=== PATIENT | female | born 1985 | race African-American/Black ===

== ENCOUNTER 2019-11-11 06:34 | Day surgery (SDC) | payer BC ==
[2019-11-05 14:43] LABS: Basophils % 1.8 % (0-1.3); Hematocrit 35.3 % (36.0-45.0); Lymphocytes % 22.1 % (15.3-44.8); RBC Red Blood Cell Count 4.47 M/uL (3.86-4.86)
--- OUTSIDE RECORDS SUMMARY | 2019-11-11 06:38 | XMS REPORT ---
:1985 [facility] Address [address] [place] [address] Dr. Yip [address] [place] [id number] Care Team Providers Name Role Phone Unavailable Unavailable Unavailable Problems This patient has no known problems. Allergies, Adverse Reactions, Alerts This patient has no known allergies or adverse reactions. Medications This patient has no known medications.
--- OUTSIDE RECORDS SUMMARY | 2019-11-11 06:38 | XMS REPORT | Summary of Care ---
:1985 Author Organization [facility] Address [address] [place] [address] Care Team Providers Name Role Phone Michele Narayan MD Primary Care Provider Encounter Details Date Type Department Care Team Description 09/10/2019 Orders Only [facility] Doctor Unassigned, No [address] [facility] [place] [address] [address] [phone] Allergies Not on Filedocumented as of this encounter (statuses as of 09/10/2019) Medications Not on filedocumented as of this encounter (statuses as of 09/10/2019) Active Problems Not on filedocumented as of this encounter (statuses as of 09/10/2019) Social History Tobacco Use Types Packs/Day Years Used Date Never Assessed Sex Assigned at Date Recorded Not on file Job Start Date Occupation Industry Not on file Not on file Not on file Travel History Travel Start Travel End No recent travel history available. documented as of this encounter Last Filed Vital Signs Not on filedocumented in this encounter Plan of Treatment Date Type Specialty Care Team Description 09/10/2019 Office Visit Endocrinology Diabetes & MendozaIsabel MD Metabolism [address] [place], [place] [id number] Health Maintenance Due Date Last Done Comments VARICELLA VACCINES (1 of 2 - 1988 2-dose childhood series) DTaP,Tdap,and Td Vaccines (1 - 1998 Tdap) PAP SMEAR 2008 INFLUENZA VACCINE (#1) 2019 PNEUMOCOCCAL 0-64 YEARS COMBINED Aged Out No longer eligible based on SERIES patient's age to complete this topic documented as of this encounter Procedures Procedure Name Priority Date/Time Associated Diagnosis Comments ASSIGNMENT OF BENEFITS Routine 09/10/2019 2:53 PM BULLDOZER/LOADER/COMPACTOR/SCRAPER documented in this encounter Results Not on filedocumented in this encounter Insurance Payer Benefit Plan Subscriber ID Effective Dates Phone Address Type / Group [facility] [id number] 2017-Alethea [phone] [address] PPO/POS [place] - OUT OF t [id number] [place] [address] documented as of this encounter
--- OUTSIDE RECORDS SUMMARY | 2019-11-11 06:38 | XMS REPORT | Summary of Care ---
:1985 Author Organization [facility] Address [address] [place] [address] Care Team Providers Name Role Phone Michele Narayan MD Primary Care Provider Reason for Visit Reason Comments Establish Care Thyroid Problem Encounter Details Date Type Department Care Team Description 09/10/2019 Office Visit [facility] Isabel Mendoza MD Hypothyroidism, unspecified type (Primary Dx); Endocrinology- [address] [facility] Hair loss [facility] Professional Office [address] [phone] [address] [place] [address] Allergies No Known Allergiesdocumented as of this encounter (statuses as of 09/10/2019) Medications Medication Sig Dispensed Refills Start Date End Date Status FERROCITE 324 mg (106 mg iron) Tab 0 06/18/2019 Active spironolactone 100 mg tablet 0 09/01/2019 Active documented as of this encounter (statuses as of 09/10/2019) Active Problems Not on filedocumented as of this encounter (statuses as of 09/10/2019) Social History Tobacco Use Types Packs/Day Years Used Date Never Smoker Smokeless Tobacco: Never Used Sex Assigned at Date Recorded Not on file Job Start Date Occupation Industry Not on file Not on file Not on file Travel History Travel Start Travel End No recent travel history available. documented as of this encounter Last Filed Vital Signs Vital Sign Reading Time Taken Comments Blood Pressure 130/90 09/10/2019 3:23 PM [employer]EWELRY SAL[employer] Pulse 82 09/10/2019 3:23 PM [employer]EW[employer] Temperature - - Respiratory Rate 16 09/10/2019 3:23 PM [employer] Oxygen Saturation - - Inhaled Oxygen Concentration - - Weight 71.1 kg (156 lb 12.8 oz) 09/10/2019 3:23 PM [employer] Height 160 cm (5' 3") 09/10/2019 3:23 PM [employer] Body Mass Index 27.78 09/10/2019 3:23 PM [employer] documented in this encounter Patient Instructions Patient InstructionsIsabel Mendoza MD - 09/10/2019 3:30 PM CSTStop iron and spirolactone when your next period start. Obtain all your blood work at 8am on the dayafter your period completes [employer] documented in this encounter Progress Notes Isabel Mendoza MD - 09/10/2019 3:30 PM CST Cc referral for abnormal thyroid tests HPI Patient is a 34 year old Black or female here as above. Patient reports worsening hair loss/thinner in past few months . Seen by fabrication operator Dr Lopez on 08/27/19. Work up reviewed mildly low free T3 at 2.2 , associated normal free T4 at 1.1 and TSH and 1.09 Patient complains today of:cold intolerance and fatigue associated with above hair loss Patient reports menses has been regular since teenage. LMP started 5 days ago. Denies FH of thyroid disease, infertility or hirsutism Patient was found to have iron deficiency and started on iron pill one month ago by PCP HISTORY No past medical history on file. No past surgical history on file. No family history on file. Social History Socioeconomic History Marital status: Single Spouse name: Not on file Number of children: Not on file Years of education: Not on file Highest education level: Not on file Occupational History Not on file Social Needs Financial resource strain: Not on file Food insecurity: Worry: Not on file Inability: Not on file Transportation needs: Medical: Not on file Non-medical: Not on file Tobacco Use Smoking status: Not on file Substance and Sexual Activity Alcohol use: Not on file Drug use: Not on file Sexual activity: Not on file Lifestyle Physical activity: Days per week: Not on file Minutes per session: Not on file Stress: Not on file Relationships Social connections: Talks on phone: Not on file Gets together: Not on file Attends catholic service: Not on file Active member of club or organization: Not on file Attends meetings of clubs or organizations: Not on file Relationship status: Not on file Intimate partner violence: Fear of current or ex partner: Not on file Emotionally abused: Not on file Physically abused: Not on file Forced sexual activity: Not on file Other Topics Concern Not on file Social History Narrative Not on file REVIEW OF SYSTEMS Constitutional: denies weight change, + fatigue and hair loss Eyes: denies blurry vision, denies diplopia and denies pain. Neck: denies pain, denies swollen glands Cardiovascular: denies chest pain , denies irregular pulse and denies palpitations. Respiratory: denies dyspnea on exertion and denies shortness of breath. Gastrointestinal: denies abdominal pain, denies constipation and denies diarrhea. Genitourinary: denies burning and denies dysuria. Musculoskeletal: denies back pain, denies muscle pain and denies weakness. Skin: denies dry skin Neuro: denies numbness , denies tingling and denies tremor. Psych: negative. Endocrine: denies goiter, + intolerance to cold, denies intolerance to heat, denies polydipsia, denies polyphagia and denies polyuria. PHYSICAL EXAM BP 130/90 (BP Location: Left arm, Patient Position: Sitting, BP CUFF SIZE: Adult Large) | Pulse 82| Resp 16 | Ht 5' 3" (1.6 m) | Wt 156 lb 12.8 oz ( 71.1 kg) | BMI 27.78 kg/m General: alert, oriented times three, no apparent distress, appearing age appropriate. Eyes: anicteric sclera, pupils are equally round and reactive to light and extraocular movements normal. Neck: neck supple, no adenopathy, no goiter Thyroid: normal size and soft in consistency to palpation, no palpable thyroid nodule, no bruits. Lungs: good diaphragmatic excursion, lungs clear to auscultation bilaterally. Heart: regular rate and rhythm, no murmurs, gallops or rubs. Abdomen: abdomen soft, non-tender, normal active bowel sounds Extremities/Musculoskeletal: no cyanosis, no edema Neuro: unremarkable without focal findings, no tremor . Skin; no hirsutism. Current Outpatient Medications Medication Sig Dispense Refill FERROCITE 324 mg (106 mg iron) Tab spironolactone 100 mg tablet No current facility-administered medications for this visit. 08/2019 TSH=1.05, free T4=1.1, free t3=2.2 SAMARIA negative CMP WNL H/H=11.2/36.2 ASSESSMENT/PLAN 1. Hypothyroidism, unspecified type Reports questionable hypothyroid symptoms with borderline low T3. However, T4 and TSH was WNL Given patient was recently started on iron, which may cause false low reading on thyroid tests Also reviewed pathophysiology of autoimmune thyroid disease Plan Will screen for durga's recheck TFts after holding iron pill - THYROID STIMULATING HORMONE; Future - T4 FREE; Future - FREE T3 - THYROID PEROXIDASE (TPO) AB; Future Patient Instructions Stop iron and spirolactone when your next period start. Obtain all your blood work at 8am on the dayafter your period completes 2. Hair loss Patient had regular menses and no sign for hirsutism in exam Hyperandrogenism is unlikely but will screen, given patient states no other hormonal work up in past - DEHYDROEPIANDROSTERONE SULFATE; Future - CORTISOL AM; Future - TESTOSTERONE, FEMALE/CHILDREN; Future Further plan pending labs documented in this encounter Plan of Treatment Name Type Priority Associated Diagnoses Order Schedule THYROID STIMULATING HORMONE LAB Routine Hypothyroidism, Expected: unspecified type 09/10/2019, Expires: 09/10/2020 T4 FREE LAB Routine Hypothyroidism, Expected: unspecified type 09/10/2019, Expires: 09/10/2020 FREE T3 LAB Routine Hypothyroidism, Ordered: unspecified type 09/10/2019 DEHYDROEPIANDROSTERONE SULFATE LAB Routine Hair loss Expected: 09/10/2019, Expires: 09/10/2020 CORTISOL AM LAB Routine Hair loss Expected: 09/10/2019, Expires: 09/10/2020 TESTOSTERONE, FEMALE/CHILDREN LAB Routine Hair loss Expected: 09/10/2019, Expires: 09/10/2020 THYROID PEROXIDASE (TPO) AB LAB Routine Hypothyroidism, Expected: unspecified type 09/10/2019, Expires: 09/10/2020 Health Maintenance Due Date Last Done Comments VARICELLA VACCINES (1 of 2 - 1988 2-dose childhood series) DTaP,Tdap,and Td Vaccines (1 - 1998 Tdap) PAP SMEAR 2008 INFLUENZA VACCINE (#1) 2019 PNEUMOCOCCAL 0-64 YEARS COMBINED Aged Out No longer eligible based on SERIES patient's age to complete this topic documented as of this encounter Results Not on filedocumented in this encounter Visit Diagnoses Diagnosis Hypothyroidism, unspecified type - Primary Hair loss Alopecia, unspecified documented in this encounter Insurance Payer Benefit Plan Subscriber ID Effective Dates Phone Address Type / Group [facility] [id number] 2017-Alethea [phone] [address] PPO/POS [place] - OUT OF 7 [id number] [place] [address] (Home) [place] [address] documented as of this encounter
--- OUTSIDE RECORDS SUMMARY | 2019-11-11 06:38 | XMS REPORT | Summary of Care ---
:1985 Author Organization [facility] Address [address] [place] [address] Care Team Providers Name Role Phone Michele Narayan MD Primary Care Provider Reason for Visit Reason Comments Establish Care Thyroid Problem Encounter Details Date Type Department Care Team Description 09/10/[address] [facility] Isabel Mendoza MD Hypothyroidism, unspecified type (Primary Dx); Endocrinology- [address] [facility] Hair loss [facility] Professional Office [address] [phone] [address] [place] [address] Allergies No Known Allergiesdocumented as [...] Comments Blood Pressure 130/90 09/10/2019 3:23 PM RESEARCH AND EVALUATION MANAGER Pulse 82 09/10/2019 3:23 PM RESEARCH AND EVALUATION MANAGER Temperature - - Respiratory Rate 16 09/10/2019 3:23 PM RESEARCH AND EVALUATION MANAGER Oxygen Saturation - - Inhaled Oxygen Concentration - - Weight 71.1 kg (156 lb 12.8 oz) 09/10/2019 3:23 PM RESEARCH AND EVALUATION MANAGER Height 160 cm (5' 3") 09/10/2019 3:23 PM RESEARCH AND EVALUATION MANAGER Body Mass Index 27.78 09/10/2019 3:23 PM RESEARCH AND EVALUATION MANAGER documented in this encounter Patient Instructions Patient InstructionsIsabel Mendoza MD - 09/10/2019 3:30 PM CSTStop iron and spirolactone when your next period start. Obtain all your blood work at 8am on the dayafter your period completes ARCH AND EVALUATION MANAGER documented in this encounter Progress Notes Isabel Mendoza MD - 09/10/2019 3:30 PM CST Cc referral for abnormal thyroid tests HPI Patient is a 34 year old Black or female here as above. Patient reports worsening hair loss/thinner in past few months . Seen by analytical engineer Dr Lopez on 08/27/19. Work up reviewed [...] file Gets together: Not on file Attends christianity service: Not on file Active member of [...] Effective Dates Phone Address Type / Group [facility] [id number] 2017-Alethea [phone] [address] PPO/POS [place] - OUT OF 7 [id number] [place] [address] (Home) [place] [address] documented as of this encounter
[2019-11-11] MEDS ORDERED: Ringers Lactate 1,000 ML IV ONE (07:00)
[2019-11-11] MEDS ORDERED: LIDOCAINE 1% W/EPI 1:100,000 MDV 20 ML VIAL ONE (07:15)
[2019-11-11 07:18] VITALS: O2SAT 100
[2019-11-11] MEDS ORDERED: LIDOCAINE 2% MPF 5 ML VIAL ONE (07:28)
[2019-11-11] MEDS ORDERED: FENTANYL CITR 100 MCG/2 ML ONE ×2 (07:28→08:52)
[2019-11-11] MEDS ORDERED: dexAMETHasone 10 MG/ML VIAL ONE (07:28)
[2019-11-11] MEDS ORDERED: MIDAZOLAM HCL 2 MG/2 ML INJ ONE (07:28)
[2019-11-11] MEDS ORDERED: propofoL 200 MG/20 ML VIAL IV ONE (07:28)
[2019-11-11] MEDS: HYDROMORPHONE HCL 1 MG/ML INJ ONE ×4 (09:25→09:44)
[2019-11-11] MEDS ORDERED: ONDANSETRON 4 MG/2 ML VIAL ONE (09:40)
[2019-11-11] MEDS: MEPERIDINE HCL 25 MG/0.5 ML ONE ×2 (09:43→09:48)
[2019-11-11] MEDS ORDERED: PROMETHAZINE INJ 25 MG/ML AMP ONE (09:57)
--- NOTE | 2019-11-11 10:09 | OP ---
Date of Procedure: 11/11/2019 Surgeon: Kezia Merchant MD Preoperative Diagnoses: Menorrhagia, fibroids, intracavitary type 1 leiomyoma. Postoperative Diagnoses: Menorrhagia, fibroids, intracavitary type 1 leiomyoma. Procedure Performed: Operative hysteroscopy, myomectomy, and D and C. Anesthesia: General with LMA. Fluid Deficit: 885 mL normal saline. Estimated Blood Loss: 50. Specimens: Myoma and endometrial curettings. Compications: No complications. Drains: No drains. Condition: Stable. Indications: The patient is a 34-year-old with heavy bleeding with enlarged uterus. Ultrasound show ing fibroids, type 1 leiomyoma inside the cavity confirmed removal after treatment of bleeding. The patient was consented and brought to the OR. Description Of Procedure: After patient was consented in the preop, she was taken back to OR, placed in a supine fashion on the operating table. After general anesthesia was given, placed in a dorsal lithotomy position using Nikko stirrups. The vulva, vagina, and perineum were prepped and draped in a sterile fashion. Speculum was placed to expose the cervix. Anterior lip grasped with 2 Allis clam ps. A slimline diagnostic hysteroscope was introduced directly into the uterine cavity. Myoma was v isualized at the fundus. The rest of the endometrial cavity was unremarkable. The slimline scope wa s exchanged with an operative hysteroscope. Then, using the smaller MyoSure LITE, I started to remov e the myoma. The blade on this and the channel was too small, so had to open the larger channel myom ectomy device. Once this was reintroduced in the uterine cavity, cavity was rinsed out. The pressur e at 100 mmHg. Then, dissection was performed taking the base down as well as the entire fibroid. E ndometrial sampling was performed as well. All the specimens were handed off for permanent pathology . The bleeding was minimal at the base of the myoma after the pressure was let down. The scope was removed. Instrument, needle, and sponge counts were done and were correct at the end of the case. T he patient tolerated the procedure well. She was recovered from anesthesia in the OR and taken to [facility] in stable condition. She has an appointment to follow up with me in 1 week and she has been given instructions to call with heavy bleeding. She will have sodium level checked in an hour postop and after verifying this, she will be discharged home. DINESH Voice ID: [id number] Report ID: [id number]
[2019-11-11 10:55] VITALS: TEMP 97.3
[2019-11-11] MEDS ORDERED: HYDROCODONE/APAP 5/325 MG TAB ONE (11:03)
[2019-11-11 12:38] VITALS: BP 123/80
== END 2019-11-11 11:40 | disposition home or self-care (01) ==
LOC: OR 06:34
PROVIDERS: ATTEND Obstetrics & Gynecology
PROC: 0UB98ZZ Excision of Uterus, Via Natural or Artificial Opening Endoscopic (ICD-10-PCS; principal; 2019-11-11 07:30)
DX: D25.9 Leiomyoma of uterus, unspecified (principal); N94.6 Dysmenorrhea, unspecified; D50.9 Iron deficiency anemia, unspecified; F41.9 Anxiety disorder, unspecified; Z80.6 Family history of leukemia; Z83.3 Family history of diabetes mellitus
CPT/HCPCS: 85025; 36415 ×2; 81025; 84295; 88305; 58561; J2704; J2550; J2250; J3010 ×2; J1100; J2175; J1170 ×2; J7120; J2405

== ENCOUNTER 2021-12-20 06:33 | Inpatient (IN) | payer BC ==
[2021-12-15 15:06] LABS: Urine Appearance CLEAR (Clear); Urine Bilirubin NEGATIVE (Negative); Urine Blood 3+ (Negative); Urine Color YELLOW (Yellow); Urine Glucose NEGATIVE (Negative); Urine Microscopic Reflex ORDER UMIC; Urine Protein NEGATIVE (Negative); Urine Urobilinogen 0.2 mg/dL (0.2-1.0); Urine pH 6.5 (5.0-7.0)
[2021-12-15 15:08] LABS: Urine Bacteria <20 /HPF (<20)
[2021-12-16 15:59] LABS: Absolute Lymphocytes (CBC) 0.5 K/uL (0.7-4.9); Hematocrit 32.1 % (36.0-45.0); Lymphocytes % 10.8 % (15.3-44.8); MPV 9.2 fL (7.6-11.3); RBC Red Blood Cell Count 3.95 M/uL (3.86-4.86)
[2021-12-20] MEDS ORDERED: BUPIVACAINE 0.25% PF 10 ML VIAL ONE ×3 (06:55→07:12)
[2021-12-20] MEDS ORDERED: NA CHLORIDE 0.9% 100 ML IV ONE (06:56)
[2021-12-20] MEDS ORDERED: VASOPRESSIN 20 UNIT/ML VIAL ONE (06:56)
[2021-12-20] MEDS ORDERED: ROCURONIUM 50 MG/5 ML VIAL IV ONE (06:58)
[2021-12-20 07:02] LABS: Specific Gravity 1.025 (1.005-1.030)
[2021-12-20] MEDS ORDERED: BUPIVACAINE 0.5% PF 10 ML VIAL ONE (07:03)
[2021-12-20] MEDS ORDERED: LIDOCAINE 2% MPF 5 ML VIAL ONE (07:04)
[2021-12-20] MEDS ORDERED: dexAMETHasone 10 MG/ML VIAL ONE ×2 (07:04→07:11)
[2021-12-20] MEDS ORDERED: FENTANYL CITR 100 MCG/2 ML ONE ×2 (07:04→10:54)
[2021-12-20] MEDS ORDERED: KETOROLAC 30 MG/ML INJ ONE (07:04)
[2021-12-20] MEDS ORDERED: propofoL 200 MG/20 ML VIAL IV ONE (07:04)
[2021-12-20] MEDS ORDERED: KETAMINE HCL 500 MG/5 ML VIAL ONE (07:04)
[2021-12-20] MEDS ORDERED: MIDAZOLAM HCL 2 MG/2 ML INJ ONE (07:05)
[2021-12-20] MEDS ORDERED: Ringers Lactate 1,000 ML IV ONE (07:05)
[2021-12-20] MEDS ORDERED: ONDANSETRON 4 MG/2 ML VIAL ONE (07:05)
[2021-12-20] MEDS: CEFAZOLIN/SWI 2gm 2 GM/20 ML SYR ONE ×2 (07:34→07:38)
[2021-12-20] MEDS ORDERED: SCOPOLAMINE HYDROBROMIDE PATCH TD ONE (07:37)
[2021-12-20] MEDS ORDERED: PROMETHAZINE INJ 25 MG/ML AMP IV PRN (08:10)
[2021-12-20] MEDS ORDERED: MORPHINE 2 MG/ML SYR IV PRN (08:10)
[2021-12-20] MEDS ORDERED: HYDROCODONE/APAP 5/325 MG TAB PO PRN (08:10)
[2021-12-20] MEDS ORDERED: HYDROMORPHONE HCL 1 MG/ML INJ ONE (08:16)
[2021-12-20] MEDS ORDERED: VECURONIUM 10 MG/VIAL IV ONE (09:42)
[2021-12-20] MEDS ORDERED: NS 0.9% VIAL 0 ML ONE (09:42)
[2021-12-20] MEDS ORDERED: Mastisol Adhesive Liq ONE (11:14)
--- NOTE | 2021-12-20 11:19 | P.BOP ---
Preoperative diagnosis: AUB-L, Pelvic pain Postoperative diagnosis: same and stage 4 endometriosis, bilateral ovarian adhesions Primary procedure: laparotomy, myomectomy, bilateral ovariolysis, endometriosis excision Secondary procedure: drainage of right ovarian endometrioma Diesel Scoop Operator: Hien Tellez ([facility]) Estimated blood loss: 100 Specimen: fibroids, over 5, bialteral ovarian adhesions, ant CDS endo Findings: ant rt fundal, lf lat broad lig, bilat ov adhesions, endometrioma R>L Anesthesia: General (and TAP block) Complications: None Fluids & blood products: UO 200 Transferred to: Recovery Room Condition: Good
[2021-12-20 11:33] VITALS: O2SAT 100
[2021-12-20] MEDS: HYDROMORPHONE HCL 1 MG/ML INJ ONE ×2 (11:47→11:52)
[2021-12-20] MEDS: MEPERIDINE HCL 25 MG/ML SYR ONE ×2 (11:54→11:59)
--- OUTSIDE RECORDS SUMMARY | 2021-12-20 11:56 | XMS REPORT | Continuity of Care Document ---
:1985 Author Organization [facility] t Address [address] Yip [address] [place] [address] Care Team Providers Name Role Phone Unavailable Unavailable Unavailable Problems This patient has no known problems. Allergies, Adverse Reactions, Alerts This patient has no known allergies or adverse reactions. Medications This patient has no known medications. Procedures This patient has no known procedures. Results This patient has no known results.
[2021-12-20] MEDS ORDERED: IBUPROFEN 600 MG TAB PO SCH (12:00)
[2021-12-20] MEDS ORDERED: NALOXONE 0.4 MG/ML VIAL IV PRN (12:08)
[2021-12-20] MEDS ORDERED: HYDROMORPHONE/PCA 10 MG/50 ML SYR IV PRN (12:08)
[2021-12-20] MEDS: FENTANYL CITR 100 MCG/2 ML ONE ×2 (12:10→12:15)
[2021-12-20 13:21] VITALS: BMI 26.5
[2021-12-20] MEDS: Ringers Lactate 1,000 ML IV SCH ×2 (14:44→22:55)
--- NOTE | 2021-12-20 14:58 | OP ---
Date of Procedure: 12/20/2021 Surgeon: Kezia Merchant MD Inspector Paper Products: Hien Youssef. Preoperative Diagnoses: AUB-leiomyomata like mass. The patient with alpha thalassemia and anemia. Postoperative Diagnoses: AUB-leiomyomata like mass. The patient with alpha thalassemia and anemia s tage IV endometriosis and bilateral ovarian adhesions. Procedures Performed: 1.Laparotomy with myomectomy. TAP block was given (then right ovarian endometrioma drainage or cyst drainage). 2.Bilateral ovariolysis. 3.Endometriosis excision. All these were through the laparotomy. Estimated Blood Loss: 100. Urine Output: 200. Complications: No complications. Drains: No drains Condition: Stable. Findings: Bilateral ovaries with right greater than left endometrioma. Then, tubes appeared to be n ormal and free. Anterior cul-de-sac endometriosis was excised. Fibroids in the right anterior kirill l wall and then left lateral intramural or transmural location extending into the left broad ligament was removed as well. These are actually a compound of 3 fibroids. Other leiomyoma removed from the anterior wall of the fundus from the incision on the other myoma. Indications: The patient is a -drkz-zmd female, has been worked up in the office in the [facility] 2 years. She had endometrial sampling procedure, hysteroscopic myomectomy 2 years ago. Her bleed ing has significantly worsened and her pain worse as well. She was evaluated with a transvaginal ult rasound now and found to have close to 8 cm leiomyoma and 6 cm leiomyoma. There was also a complex o f 3 cysts on the right ovary suspicious for the holding suspicious for an endometrioma. She was evaluated with repeat endometrial sampling procedure and the biopsy was negative for __. The patient wants to preserve the infertility if possible, so we discussed all the conservative medic al and surgical options including interventional procedures as she wants to maintain fertility, she w ants to proceed with myomectomy. Discussed about laparoscopic and open procedures. I would prefer t o do an open procedure given all the size of the fibroids locations and the possibility of endometrio sis. Description Of Procedure: She was given 2 g of Ancef, taken back to OR, placed in supine fashion on the table. After general anesthesia was given, she was placed in a dorsal lithotomy position using A llen stirrups. Abdomen, vulva, vagina, and perineum were prepped and draped in a sterile fashion. Gonzalez was placed to drain the bladder and the patient was placed in the lithotomy. A TAP block was given before prepp ing was done. A Pfannenstiel incision was made. Fascia incised. The rectus muscle . Peritoneum entered sharply and extended peritoneal incision all the way superiorly and inferiorly. Once this was done, [place] retractor was placed and bowel was packed into the top and the patient was placed in [place]. The uterus and its fibroids were unable to be delivered as there were significant adhesions of the ut erine wall to the posterior pelvic cavity contents. Once the anterior right fundal leiomyoma was exposed, dilute vasopressin was used to circumferentiall y inject for hemostasis. An incision made with a scalpel on it until the myoma was visualized. Once this was done, the incision extended on both sides at least to be 5.5 to 6 cm incision. Then, myoma was removed gradually by shelling it out and base was cauterized and a stitch tied. Defect did not extend into the endometrial cavity, was closed in 3 layers with 2-0 Vicryl suture and a baseball sutu re on the top. There was another fibroid that could be accessed through the same incision, so this w as also removed and then the entire wound was repaired. Similar injection for the left lower lateral fibroid was given with dilute vasopressin. An incision was made transversely over this, then went ahead and dissected all the way to the level plane of the fibroid. Then, incision extended on both sides to be at least 8 cm. There were multiple myomata analisa t were removed through this. Once all these were shelled out, the base was stitch tied with 2-0 Vicr yl suture. Then, closure of the subendometrial tissue was done with the help of a 3-0 Monocryl. Nex t, 2 layers were closed with the help of 0 Vicryl in a continuous running fashion. Then, the topmost layer closed at the baseball stitch using 2-0 Monocryl. Excellent apposition on both sides. Anterior cul-de-sac had an endometriotic implant that was excised and this was sutured with a 3-0 Tee ryl stitch to avoid adhesions here. Then posteriorly, the ovarian adhesions were taken down from the colon and from each other and the po sterior broad ligament. Once this was done, the endometrium on the right side was well visualized as well as on the left side. Since the endometrium was significantly large on the right side could be contributing to her pain as there were bowel adhesions at the base that will be very difficult to dissect at this time given all the pathology here, plan was made to perform drainage of an endometrioma, which was done. This was a lso to preserve her fertility. After thorough evacuation of the contents of the chocolate cyst, next thorough irrigation and suction were performed and the area was well visualized and cauterized. Thorough irrigation and suction were performed. All the packings were removed. Instrument, needle, and sponge counts were done and were correct at the end of the case. The patient tolerated the proce dure well. She was recovered from anesthesia and taken to PACU in stable condition. Lisa was remov ed and her family would be briefed on the procedure. She will be in-house for 1-2 days and then will be discharged. The peritoneum closed with the help of continuous running 3-0 Monocryl. Then, rectus muscles brought together with the help of 2 simple 0 Vicryl sutures and chromic suture. Fascia closed with the help of 0 Vicryl in a continuous running fashion. Subcutaneous tissue was brought with the help of chrom ic and subcuticular closure with chromic. Gonzalez removed. BRADEN/BENNETT Voice ID: [id number] Report ID: [id number]
[2021-12-21] MEDS: Ringers Lactate 1,000 ML IV SCH ×4 (01:00→23:57)
[2021-12-21 06:27] LABS: Absolute Lymphocytes (CBC) 0.6 K/uL (0.7-4.9); Hematocrit 26.6 % (36.0-45.0); Lymphocytes % 5.6 % (15.3-44.8); MPV 8.7 fL (7.6-11.3)
[2021-12-21] MEDS ORDERED: KETOROLAC 30 MG/ML INJ IV ONE (11:00)
[2021-12-21] MEDS: IBUPROFEN 600 MG TAB PO SCH ×3 (12:09→23:56)
[2021-12-21] MEDS: HYDROCODONE/APAP 5/325 MG TAB PO PRN ×2 (13:50→20:28)
[2021-12-21] MEDS: MAGNESIUM HYDROXIDE 8% 30 ML PO PRN (20:27)
--- NOTE | 2021-12-21 20:36 | P.PN ---
Subjective Date of Service: 12/21/21 Chief Complaint: 1 day post op laparatomy myomectomy endometriosis excision Subjective: Tolerating diet, Ambulating, Improving, Doing well Review of Systems 10-point ROS is otherwise unremarkable Physical Examination - Vital Signs Temperature: 97.1 F Blood Pressure: 119/75 Pulse: 85 Respirations: 18 Pulse Ox (%): 100 - Physical Exam General: Alert, In no apparent distress Respiratory: Clear to auscultation bilaterally, Normal air movement Cardiovascular: Regular rate/rhythm, Normal S1 S2 Gastrointestinal: Normal bowel sounds, No tenderness Musculoskeletal: No tenderness Neurological: Normal gait, Normal speech, Normal tone, Normal affect - Studies Laboratory Data (last 24 hrs) 12/21/21 06:14: WBC 10.2 D, Hgb 9.0 L, Hct 26.6 L D, Plt Count 237 Medications List Reviewed: Yes Assessment And Plan - Plan Recovering well tolerating PO pain medication and diet, ambulating. Weaning from POURER Dilaudid onto PO Mullan/NSAIDs. Notes constipation, will get started on SS and MOM tonight, passing flatulence. Fluid intake adequate. Abdominal incision site covered w dressing C/D/I. Will plan to discharge tomorrow if able to have adequate pain control on PO meds. Discharge Plan: Home Plan to discharge in: 24 Hours - Code Status/Comfort Care Code Status Assessed: Yes Code Status: Full Code Critical Care: No Time Spent Managing PTS Care (In Minutes): 20
[2021-12-21] MEDS ORDERED: DOCUSATE NA 100 MG CAP PO SCH (21:00)
[2021-12-22 04:57] VITALS: TEMP 97.8
[2021-12-22] MEDS: IBUPROFEN 600 MG TAB PO SCH ×2 (06:23→12:13)
[2021-12-22] MEDS: Ringers Lactate 1,000 ML IV SCH (08:06)
[2021-12-22] MEDS: HYDROCODONE/APAP 5/325 MG TAB PO PRN (09:03)
[2021-12-22 09:16] VITALS: BP 128/82
[2021-12-22] MEDS: MAGNESIUM HYDROXIDE 8% 30 ML PO PRN (13:02)
--- NOTE | 2021-12-23 12:09 | DS ---
Date of Discharge: 12/22/2021 Diagnosis: Postop laparotomy, myomectomy, endometriosis excision. Hospital Course: Patient was admitted postoperatively and is recovering well. She is tolerating p.o . pain medication and her diet, ambulating. 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 No rco/NSAIDs. She constipation, she is started on a stool softener and milk of magnesia. P assing flatulence. Adequate fluid intake. Abdominal incision site covered with dressing clean, dry, and intact. Her plan is to go home. Plan: To discharge home with p.o. pain medications and follow up next week in clinic. BRADEN/BENNETT Voice ID: [id number] Report ID: [id number]
== END 2021-12-22 14:00 | disposition home or self-care (01) | DRG 743 ==
LOC: OR 06:33 → 2ND-WC 11:53
PROVIDERS: ADMIT Obstetrics & Gynecology; ATTEND Obstetrics & Gynecology
PROC: 0UN20ZZ Release Bilateral Ovaries, Open Approach (ICD-10-PCS; 2021-12-20)
PROC: 0UBF0ZZ Excision of Cul-de-sac, Open Approach (ICD-10-PCS; 2021-12-20)
PROC: 0U900ZX Drainage of Right Ovary, Open Approach, Diagnostic (ICD-10-PCS; 2021-12-20)
PROC: 0UB90ZZ Excision of Uterus, Open Approach (ICD-10-PCS; principal; 2021-12-20 07:30)
DX: D25.9 Leiomyoma of uterus, unspecified (principal); D50.9 Iron deficiency anemia, unspecified; R19.03 Right lower quadrant abdominal swelling, mass and lump; N92.1 Excessive and frequent menstruation with irregular cycle; D56.0 Alpha thalassemia; N80.1 Endometriosis of ovary; N80.3 Endometriosis of pelvic peritoneum; D25.1 Intramural leiomyoma of uterus; Z20.822 Contact with and (suspected) exposure to COVID-19
CPT/HCPCS: 36415; 81003; 81015; 81025; 85025; 86850; 86900; 86901; 88304; 88305; 94010; J0690; J1100; J1170; J2175; J2250; J2405; J2704; J3010; J7120; U0002

== ENCOUNTER 2022-01-10 21:39 | Emergency (ER) | payer BC ==
--- OUTSIDE RECORDS SUMMARY | 2022-01-10 21:43 | XMS REPORT | Continuity of Care Document ---
:1985 Author Organization [facility] t Address [address] [place] [address] Care Team Providers Name Role Phone Unavailable Unavailable Unavailable Problems This patient has no known problems. Allergies, Adverse Reactions, Alerts This patient has no known allergies or adverse reactions. Medications This patient has no known medications. Procedures This patient has no known procedures. Results This patient has no known results.
[2022-01-11 00:08] LABS: Absolute Lymphocytes (CBC) 0.9 K/uL (0.7-4.9); Hematocrit 30.5 % (36.0-45.0); Lymphocytes % 18.2 % (15.3-44.8); RBC Red Blood Cell Count 3.84 M/uL (3.86-4.86)
[2022-01-11 00:24] LABS: Albumin 3.8 g/dL (3.4-5.0); Bilirubin Total 0.4 mg/dL (0.2-1.0); Protein, Total 6.8 g/dL (6.4-8.2)
--- NOTE | 2022-01-11 02:04 | EDPHYS ---
Physician Documentation [facility] Name: Melissa Guzman Age: 36 yrs Sex: Female : 1985 Arrival Date: 01/10/2022 Time: 21:43 Bed 23 Private MD: ED Physician Colton Shaikh HPI: 01/11 20:10 This 36 yrs old Black Female presents to ER via Ambulatory with complaints of Belly kdr Button Leaking. 20:10 The patient presents with abdominal pain in the periumbilical area. Onset: The kdr symptoms/episode began/occurred acutely. The symptoms do not radiate. Associated signs and symptoms: none. The symptoms are described as achy, intermittent, vague. Modifying factors: The symptoms are alleviated by nothing, the symptoms are aggravated by nothing. Severity of pain: At its worst the pain was mild in the emergency department the pain is unchanged. The patient has not experienced similar symptoms in the past. The patient has not recently seen a physician. 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 - Social history:: Smoking status: Patient denies any tobacco usage or history of. ROS: 01/11 20:10 Constitutional: Negative for fever, chills, and weight loss, Eyes: Negative for injury, kdr pain, redness, and discharge, Neck: Negative for injury, pain, and swelling, Cardiovascular: Negative for chest pain, palpitations, and edema, Respiratory: Negative for shortness of breath, cough, wheezing, and pleuritic chest pain, Back: Negative for injury and pain, : Negative for injury, bleeding, discharge, and swelling, MS/Extremity: Negative for injury and deformity, Skin: Negative for injury, rash, and discoloration, Neuro: Negative for headache, weakness, numbness, tingling, and seizure activity. Psych: Negative for depression, anxiety, suicide ideation, homicidal ideation, and hallucinations, Allergy/Immunology: Negative for hives, rash, and allergies, Endocrine: Negative for neck swelling, polydipsia, polyuria, polyphagia, and marked weight changes, Hematologic/Lymphatic: Negative for swollen nodes, abnormal bleeding, and unusual bruising. Abdomen/GI: Positive for abdominal pain. Exam: 20:10 Constitutional: This is a well developed, well nourished patient who is awake, alert, kdr and in no acute distress. Head/Face: Normocephalic, atraumatic. Eyes: Pupils equal round and reactive to light, extra-ocular motions intact. Lids and lashes normal. Conjunctiva and sclera are non-icteric and not injected. Cornea within normal limits. Periorbital areas with no swelling, redness, or edema. Neck: Trachea midline, no thyromegaly or masses palpated, and no cervical lymphadenopathy. Supple, full range of motion without nuchal rigidity, or vertebral point tenderness. No Meningismus. Chest/axilla: Normal chest wall appearance and motion. Nontender with no deformity. No lesions are appreciated. Cardiovascular: Regular rate and rhythm with a normal S1 and S2. No gallops, murmurs, or rubs. Normal PMI, no JVD. No pulse deficits. Respiratory: Lungs have equal breath sounds bilaterally, clear to auscultation and percussion. No rales, rhonchi or wheezes noted. No increased work of breathing, no retractions or nasal flaring. Abdomen/GI: Soft, non-tender, with normal bowel sounds. No distension or tympany. No guarding or rebound. No evidence of tenderness throughout. Back: No spinal tenderness. No costovertebral tenderness. Full range of motion. Skin: Warm, dry with normal turgor. Normal color with no rashes, no lesions, and no evidence of cellulitis. MS/ Extremity: Pulses equal, no cyanosis. Neurovascular intact. Full, normal range of motion. Neuro: Awake and alert, GCS 15, oriented to person, place, time, and situation. Cranial nerves II-XII grossly intact. Motor strength 5/5 in all extremities. Sensory grossly intact. Cerebellar exam normal. Normal gait. Psych: Awake, alert, with orientation to person, place and time. Behavior, mood, and affect are within normal limits. 20:10 Abdomen/GI: There is a small mole at the base of her like is. I was unable to palpate any masses or nodules. There is no draining fistulous. . Vital Signs: 01/10 22:30 BP 128 / 96; Pulse 83; Resp 18 S; Temp 98.6(O); Pulse Ox 100% on R/A; Weight 68.04 kg as6 (R); Height 5 ft. 3 in. (160.02 cm) (R); Pain 4/10; 22:45 BP 119 / 94; Pulse 77; Resp 16 S; Pulse Ox 100% ; Pain 4/10; ag7 23:30 BP 135 / 91; Pulse 79; Resp 16 S; Pulse Ox 100% on R/A; Pain 4/10; ag7 22:30 Body Mass Index 26.57 (68.04 kg, 160.02 cm) as6 MDM: 01/11 02:04 Patient medically screened. kdr 20:37 Data reviewed: vital signs, nurses notes. Counseling: I had a detailed discussion with kdr the patient and/or guardian regarding: the historical points, exam findings, and any diagnostic results supporting the discharge/admit diagnosis, lab results, radiology results, the need for outpatient follow up. 01/10 23:39 Order name: CBC with Diff; Complete Time: 00:30 kdr 01/10 23:39 Order name: CMP; Complete Time: 00:30 kdr 01/10 23:39 Order name: Lipase; Complete Time: 00:30 [facility] 01/10 23:39 Order name: IV Saline Lock; Complete Time: 23:53 kdr 01/10 23:39 Order name: Labs collected and sent; Complete Time: 23:53 [facility] 01/10 23:39 Order name: CT Abd/Pelvis - IV Contrast Only kdr Administered Medications: No medications were administered Disposition Summary: 01/11/22 02:04 Discharge Ordered Location: Home kdr Problem: new kdr Symptoms: have improved kdr Condition: Stable kdr Diagnosis - Abdominal pain, Generalized kdr Followup: kdr - With: Private Physician - When: 2 - 3 days - Reason: If symptoms return, Further diagnostic work-up, Recheck today's complaints, Continuance of care, Re-evaluation by your physician Discharge Instructions: - Discharge Summary Sheet ag7 - Abdominal Pain, Adult ag7 Forms: - Medication Reconciliation Form kdr - Thank You Letter kdr - Antibiotic Education kdr - Prescription Opioid Use kdr Signatures: Dispatcher [employer] EDColton Jones MD MD kdr Nigel Goodrich, RN RN as6
--- NOTE | 2022-01-11 02:04 | ER ---
Nurse's Notes [facility] Name: Melissa Guzman Age: 36 yrs Sex: Female : 1985 Arrival Date: 01/10/2022 Time: 21:43 Bed 23 Private MD: Diagnosis: Abdominal pain, Generalized Presentation: 01/10 22:30 Chief complaint: Patient states: "I had a recent surgery to remove some fibroids, I am as6 having some soreness and my belly button where is did the surgery, I'm worried its infected". Coronavirus screen: At this time, the client does not indicate any symptoms associated with coronavirus-19. Ebola Screen: No symptoms or risks identified at this time. Initial Sepsis Screen: Does the patient meet any 2 criteria? No. Patient's initial sepsis screen is negative. Does the patient have a suspected source of infection? No. Patient's initial sepsis screen is negative. Risk Assessment: Do you want to hurt yourself or someone else? Patient reports no desire to harm self or others. Onset of symptoms was January 09, 2022. 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 - Social history:: Smoking status: Patient denies any tobacco usage or history of. Screenin:46 Abuse screen: Denies threats or abuse. Nutritional screening: No deficits noted. ag7 Tuberculosis screening: No symptoms or risk factors identified. Fall Risk No fall in past 12 months (0 pts). No secondary diagnosis (0 pts). No IV (0 pts). Ambulatory Aid- None/Bed Rest/Nurse Assist (0 pts). Gait- Normal/Bed Rest/Wheelchair (0 pts) Mental Status- Oriented to own ability (0 pts). Total Vivar Fall Scale indicates No Risk (0-24 pts). Assessment: 22:37 General: Appears in no apparent distress. Behavior is calm, cooperative, appropriate ag7 for age. Pain: Complains of pain in umbilical area Pain does not radiate. Pain currently is 5 out of 10 on a pain scale. Quality of pain is described as aching, Pain began suddenly, Is continuous, Alleviated by medications, rest. Neuro: Level of Consciousness is awake, alert, obeys commands, Oriented to Appropriate for age. Cardiovascular: Heart tones S1 S2 present Patient's skin is warm and dry. Respiratory: Airway is patent Trachea midline Respiratory effort is even, unlabored, Respiratory pattern is regular, symmetrical, Breath sounds are clear bilaterally. GI: Abdomen is round non-distended, Reports upper abdominal pain. Derm: Skin is intact, skin tag noted in the umbilical area with no drainage noted at this time Reports intermittent yellow brownish drainage with crusting. 23:30 Reassessment: No changes from previously documented assessment. ag7 01/11 00:19 Reassessment: Patient and/or family updated on plan of care and expected duration. Pain ag7 level reassessed. Patient is alert, oriented x 3, equal unlabored respirations, skin warm/dry/pink. Patient states feeling better. Patient states symptoms have improved. Vital Signs: 01/10 22:30 BP 128 / 96; Pulse 83; Resp 18 S; Temp 98.6(O); Pulse Ox 100% on R/A; Weight 68.04 kg as6 (R); Height 5 ft. 3 in. (160.02 cm) (R); Pain 4/10; 22:45 BP 119 / 94; Pulse 77; Resp 16 S; Pulse Ox 100% ; Pain 4/10; ag7 23:30 BP 135 / 91; Pulse 79; Resp 16 S; Pulse Ox 100% on R/A; Pain 4/10; ag7 22:30 Body Mass Index 26.57 (68.04 kg, 160.02 cm) as6 ED Course: 21:43 Patient arrived in ED. ja2 22:34 Triage completed. as6 22:35 Arm band placed on. as6 22:36 Elvia Cuevas, RN is Primary Nurse. ag7 22:46 Patient has correct armband on for positive identification. Bed in low position. Call ag7 light in reach. Adult w/ patient. 22:48 Colton Shaikh MD is Attending Physician. kdr 23:53 Inserted saline lock: 20 gauge in right antecubital area, using aseptic technique. ag7 Blood collected. 01/11 01:32 CT Abd/Pelvis - IV Contrast Only In Process Unspecified. EDMS 02:32 No provider procedures requiring assistance completed. IV discontinued, intact, ag7 bleeding controlled, No redness/swelling at site. Pressure dressing applied. Administered Medications: No medications were administered Medication: 01/10 22:46 VIS not applicable for this client. ag7 Outcome: 01/11 02:04 Discharge ordered by . kdr 02:32 Discharged to home ambulatory. ag7 02:32 Condition: stable 02:32 Discharge instructions given to patient, Instructed on discharge instructions, follow up and referral plans. Demonstrated understanding of instructions, follow-up care. 02:33 Patient left the ED. ag7 Signatures: Dispatcher [employer] EDTX Colton Shaikh MD MD kdr Dannielle Mata Ashby, RN RN as6 Elvia Cuevas, RN RN ag7 Corrections: (The following items were deleted from the chart) 01/10 23:53 23:53 Inserted saline lock: 20 gauge in right antecubital area, using aseptic ag7 technique. ag7
[2022-01-11 02:50] VITALS: TEMP 98.6; O2SAT 100
[2022-01-11 03:05] VITALS: BP 135/91
--- NOTE | 2022-01-11 13:47 | RAD REPORT ---
EXAM DESCRIPTION: CT - Abdomen Pelvis W Contrast - 01/11/2022 6:22 am CLINICAL HISTORY: 36 years, Female, Abdominal pain, acute, nonlocalized COMPARISON: None. TECHNIQUE: Contrast-enhanced images of the abdomen and pelvis were performed utilizing 5 mm slice th ickness at 5 mm interval reconstruction from the lung bases to the ischial tuberosities after the adm inistration of IV contrast. In addition multiplanar reformats in the coronal and sagittal plane were obtained and reviewed. This exam was performed according to our departmental dose-optimization protocol, which includes auto mated exposure control, adjustment of the mA and/or kV according to patient size and/or use of iterat jerica reconstruction technique. FINDINGS: The lung bases demonstrate to be clear. The liver demonstrated presence of a tiny peripheral nodular density lesion lateral segment left hepa tic lobe measuring approximately 0.7 cm on axial image 13/98 and posterior inferior subcapsular right hepatic lobe measuring 1.4 x 1.2 cm on image 28/89, most likely hospital insurance representative of a hemangiomas. Oth erwise the liver, gallbladder, pancreas, spleen and adrenal glands demonstrate to be unremarkable, no focal lesions are noted. The kidneys demonstrate normal uptake of contrast media. No evidence for nephrolithiasis and/or hydro nephrosis. There is a upper pole left renal cyst measuring 1.2 cm on image 21/89 small hypodensities within the right and left kidney correspond to most likely smaller cysts. Grossly the unopacified stomach, small bowel and large bowel demonstrate to be within normal limits. There is no evidence for bowel dilatation/or free air. The appendix was not visualized although n o significant inflammatory changes are seen within the right lower quadrant. The urinary bladder demonstrate to be unremarkable. The uterus demonstrate to be within normal limi ts. There is a right adnexal cystic structure measuring 4.3 x 3 cm on image 59/89. Smaller left adnex al cystic structure measuring 1.7 x 3.3 cm on image 60/89. The aorta demonstrate to be unremarkable . There is no retroperitoneal lymphadenopathy. There is no evidence for ascites/or abnormal fluid c ollections. The rest of the soft tissue and bony structures are within normal limits. IMPRESSION: No acute intra-abdominal process. Multiple ovarian cysts. Most severe: 4.3 cm right adnexal simple-appearing cyst. No follow-up imaging is recommended. 2 peripheral nodular density lesion lateral segment left hepatic lobe and posterior inferior subcapsu lar right hepatic lobe, most likely hospital insurance representative of a hemangiomas. Bilateral renal cysts. Electronically signed by: Richard Bazan MD 01/11/2022 1:47 AM CDT Due to temporary technical issues with the PACS/Fluency reporting system, reports are being signed by the in house radiologists without review as a courtesy to insure prompt reporting. The interpreting radiologist is fully responsible for the content of the report.
== END 2022-01-11 02:33 | disposition home or self-care (01) ==
LOC: ER 21:39
DX: R10.84 Generalized abdominal pain (principal)
CPT/HCPCS: 85025; 36415; 83690; 80053; 74177; 99283; Q9967

== ENCOUNTER 2022-01-16 16:31 | Emergency (ER) | payer BC ==
--- OUTSIDE RECORDS SUMMARY | 2022-01-16 16:34 | XMS REPORT | Continuity of Care Document ---
:1985 Author Organization [facility] t Address [address] [place] [address] Care Team Providers Name Role Phone MAGALYS Attending Clinician Unavailable Problems This patient has no known problems. Allergies, Adverse Reactions, Alerts This patient has no known allergies or adverse reactions. Medications This patient has no known medications. Procedures This patient has no known procedures. Encounters Start End Encounter Admission Attending Care Care Encounter Source Date/Time Date/Time Type Type Clinicians Facility Department ID 2022-01-15 2022-01-15 Emergency [facility] [id number] 00:00:00 00:00:[address] Results This patient has no known results.
[2022-01-16 17:15] LABS: Absolute Lymphocytes (CBC) 0.8 K/uL (0.7-4.9); Hematocrit 26.8 % (36.0-45.0); MPV 8.6 fL (7.6-11.3); RBC Red Blood Cell Count 3.44 M/uL (3.86-4.86)
[2022-01-16 17:27] LABS: Potassium 4.3 mmol/L (3.5-5.1)
[2022-01-16 18:59] LABS: Urine Blood 3+ (Negative); Urine Glucose Negative (Negative); Urine Protein 1+ (Negative); Urine Specific Gravity 1.025 (1.005-1.030)
--- NOTE | 2022-01-16 19:07 | RAD REPORT ---
EXAM DESCRIPTION: RAD - Chest Single View - 01/16/2022 6:53 pm CLINICAL HISTORY: SOB COMPARISON: No comparisons FINDINGS: Lines: None. Lungs: No evidence of edema or pneumonia. Pleural: No significant pleural effusions or pneumothorax. Cardiac: The heart size is within normal limits. Bones: No acute fractures. Other: IMPRESSION: No acute cardiopulmonary disease.
[2022-01-16] MEDS ORDERED: MEDROXYPROGEST ACET 150 MG/ML IM ONE (20:00)
--- NOTE | 2022-01-16 21:02 | EDPHYS ---
Physician Documentation [facility] Name: Melissa Guzman Age: 36 yrs Sex: Female : 1985 Arrival Date: 01/16/2022 Time: 16:34 Bed 20 Private MD: Macro Pascual ED Physician Roscoe Salmeron HPI: 01/16 17:03 This 36 yrs old Black Female presents to ER via Wheelchair with complaints of Vaginal ms3 Bleeding, Headache, Fatigue, Shortness Of Breath. 17:03 The patient presents with vaginal bleeding that is heavy, with clots, reports using 10 ms3 pads or tampons per day. Onset: The symptoms/episode began/occurred today. Modifying factors: The symptoms are alleviated by nothing, the symptoms are aggravated by nothing. Associated signs and symptoms: Pertinent positives: vaginal bleeding, SOB. Severity of symptoms: At their worst the symptoms were severe, in the emergency department the symptoms are unchanged. Similar to anemia symptoms. Patient states she had a myomectomy on 12/20/2021. 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 - Social history:: Smoking status: Patient denies any tobacco usage or history of. ROS: 17:03 Constitutional: Negative for fever, and chills. Neck: Negative for injury, pain, and ms3 swelling, Cardiovascular: Negative for chest pain, and palpitations. Skin: Negative for injury, rash, and discoloration. 17:03 Respiratory: Positive for shortness of breath. 17:03 : Positive for vaginal bleeding. 17:03 Neuro: Positive for Lightheaded. 17:03 All other systems are negative. Exam: 17:03 Constitutional: This is a well developed, well nourished patient who is awake, alert, ms3 and in no acute distress. Neck: Trachea midline, no cervical lymphadenopathy. Supple, full range of motion without nuchal rigidity, or vertebral point tenderness. No Meningismus. Chest/axilla: Normal chest wall appearance and motion. Nontender with no deformity. Respiratory: Lungs have equal breath sounds bilaterally, clear to auscultation and percussion. No rales, rhonchi or wheezes noted. No increased work of breathing, no retractions or nasal flaring. Abdomen/GI: Soft, non-tender, with normal bowel sounds. No distension or tympany. No guarding or rebound. No evidence of tenderness throughout. Skin: Warm, dry with normal turgor. Normal color with no rashes, no lesions, and no evidence of cellulitis. Psych: Awake, alert, with orientation to person, place and time. Behavior, mood, and affect are within normal limits. 17:03 Cardiovascular: Rate: tachycardic, Rhythm: regular, Pulses: no pulse deficits are appreciated, Heart sounds: normal, normal S1and S2. Vital Signs: 16:43 BP 112 / 84; Pulse 107; Resp 16; Temp 98.1(TE); Pulse Ox 100% ; Weight 67.13 kg (R); jb4 Height 5 ft. 3 in. (160.02 cm) (R); Pain 0/10; 17:34 BP 109 / 87; Pulse 101; Resp 16; ll1 18:53 BP 107 / 68; Pulse 99; Resp 16; ll1 19:00 BP 113 / 84; Pulse 105; Resp 18 S; Pulse Ox 100% on R/A; Pain 0/10; ag7 16:43 Body Mass Index 26.22 (67.13 kg, 160.02 cm) jb4 MDM: 16:48 Patient medically screened. ms3 17:03 Differential diagnosis: dysfunctional uterine bleeding, menorrhea, Anemia. ms3 17:45 Physician consultation: Kezia Merchant MD was called at 17:45, was contacted at ms3 17:46, regarding patient's condition, and will see patient in office, would like medications started, Depo 300 mg. Give patient Rx for TXA 650 mg TID x 3-5 days. Give 30 tabs. TXA to be used if bleeding does not stop in 1-2 days after Depo injection.. 19:09 Transition of care: After a detail discussion of the patient's case, care is ms3 transferred to Roscoe Salmeron MD. 20:56 Data reviewed: vital signs, nurses notes, old medical records, lab test result(s), CBC, 7 electrolytes, urinalysis, radiologic studies, plain films. Data interpreted: Pulse oximetry: on room air is 100 %. Interpretation: normal. Counseling: I had a detailed discussion with the patient and/or guardian regarding: the historical points, exam findings, and any diagnostic results supporting the discharge/admit diagnosis, lab results, radiology results, the need for outpatient follow up, an OB/Gyne specialist, to return to the emergency department if symptoms worsen or persist or if there are any questions or concerns that arise at home. Response to treatment: the patient's symptoms have markedly improved after treatment. ED course: Feels better, well appearing, NAD, VSS, no focal neurological deficits. Vaginal bleeding mostly resolved. Patient declined Depot stating that she just does not want to take it. Attempted to contact Dr. Merchant regarding patient's decision, left message, but no call back. Patient requests to be discharged from the ER at this time. She will follow up with Dr. Merchant but return to ER if worsening of symptoms.. 01/16 16:48 Order name: Abo/rh Typing; Complete Time: 17:38 ms3 01/16 16:48 Order name: Basic Metabolic Panel; Complete Time: 17:31 ms3 01/16 16:48 Order name: CBC with Diff; Complete Time: 17:31 ms3 01/16 17:45 Order name: D-Dimer; Complete Time: 18:18 ms3 01/16 19:00 Order name: Urine Dipstick-Ancillary; Complete Time: 19:00 EDMS 01/16 16:48 Order name: IV Saline Lock; Complete Time: 16:50 ms3 01/16 16:48 Order name: Labs collected and sent; Complete Time: 16:50 ms3 01/16 16:48 Order name: NPO; Complete Time: 16:50 ms3 01/16 16:48 Order name: Urine Dipstick-Ancillary (obtain specimen); Complete Time: 18:52 ms3 01/16 17:45 Order name: CXR XRAY; Complete Time: 19:08 ms3 Administered Medications: 20:18 Not Given (Patient Refused): DepoProvera - medroxyPROGESTERone 300 mg IM once ag7 Disposition Summary: 01/16/22 21:02 Discharge Ordered Location: Home [facility] Condition: Stable mh7 Diagnosis - Anemia, unspecified mh7 - Abnormal uterine and vaginal bleeding, unspecified 7 - Shortness of breath 7 Followup: ms3 - With: - When: 1 - 2 days - Reason: Recheck today's complaints Discharge Instructions: - Discharge Summary Sheet ms3 - Abnormal Uterine Bleeding ms3 - Anemia ms3 Forms: - Medication Reconciliation Form mh7 - Thank You Letter mh7 - Antibiotic Education 7 - Prescription Opioid Use 7 Signatures: Dispatcher [employer] EDQuique Koroma RN RN jb4 Clovis Roche DO DO ms3 Roscoe Salmeron MD MD 7 Crystal Collins PA PA sb3 Elvia Cuevas RN 7
--- NOTE | 2022-01-16 21:02 | ER ---
Nurse's Notes [facility] Name: Melissa Guzman Age: 36 yrs Sex: Female : 1985 Arrival Date: 01/16/2022 Time: 16:34 Bed 20 Private MD: Naima Pascual Diagnosis: Anemia, unspecified;Abnormal uterine and vaginal bleeding, unspecified;Shortness of breath Presentation: 01/16 16:43 Chief complaint: Friend and/or Co-Worker states: She recently had fibroid surgery. She jb4 is currently on her period. She is having heavy vaginal bleeding, is filling a pad every hour with large clots. She is short of breath, was recently at an ER and her HGB was low. Can't catch her breath after walking. Coronavirus screen: At this time, the client does not indicate any symptoms associated with coronavirus-19. Ebola Screen: No symptoms or risks identified at this time. Initial Sepsis Screen: Does the patient meet any 2 criteria? HR > 90 bpm. Does the patient have a suspected source of infection? No. Patient's initial sepsis screen is negative. Risk Assessment: Do you want to hurt yourself or someone else? Patient reports no desire to harm self or others. Onset of symptoms was January 16, 2022. Transition of care: patient was not received from another setting of care. 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 - Social history:: Smoking status: Patient denies any tobacco usage or history of. Screenin:47 Abuse screen: Denies threats or abuse. Nutritional screening: No deficits noted. ll1 Tuberculosis screening: No symptoms or risk factors identified. 17:33 Fall Risk Secondary diagnosis (15 points) anemia. IV access (20 points). Ambulatory ll1 Aid- Crutches/Cane/Walker (15 pts). Gait- Weak (10 pts.). Total Vivar Fall Scale indicates High Risk Score (45 or more points). Fall prevention measures have been instituted. Side Rails Up X 2 Placed Close to Nursing Station Frequent Obs/Assessments Occuring Family Present and informed to notify staff if the need to leave the bedside As available patient and family educated on Fall Prevention Program and Strategies. Assessment: 16:47 General: Appears uncomfortable, ill, Behavior is calm, cooperative, appropriate for ll1 age. Pain: Denies pain. Neuro: Reports dizziness, headache weakness. Cardiovascular: Reports fatigue, lightheadedness, shortness of breath. Respiratory: Reports shortness of breath at rest Airway is patent Trachea midline Respiratory effort is even, unlabored, Respiratory pattern is regular, symmetrical. GI: Abdomen is flat, Bowel sounds present X 4 quads. Reports cramping. : naima blood, Reports vaginal bleeding that is with clots, heavy flow. 17:45 Reassessment: No changes from previously documented assessment. Patient and/or family ll1 updated on plan of care and expected duration. Pain level reassessed. Patient is alert, oriented x 3, equal unlabored respirations, skin warm/dry/pink. 18:45 Reassessment: No changes from previously documented assessment. Patient and/or family ll1 updated on plan of care and expected duration. Pain level reassessed. Patient is alert, oriented x 3, equal unlabored respirations, skin warm/dry/pink. 19:00 Reassessment: Patient and/or family updated on plan of care and expected duration. Pain ag7 level reassessed. Patient is alert, oriented x 3, equal unlabored respirations, skin warm/dry/pink. Patient denies pain at this time. Patient states feeling better. Patient states symptoms have improved. 20:18 Reassessment: Patient refused depo vaccine, MD Salmeron informed of patient refusal. ag7 Family at the bedside taking pictures of medication. Vital Signs: 16:43 BP 112 / 84; Pulse 107; Resp 16; Temp 98.1(TE); Pulse Ox 100% ; Weight 67.13 kg (R); jb4 Height 5 ft. 3 in. (160.02 cm) (R); Pain 0/10; 17:34 BP 109 / 87; Pulse 101; Resp 16; ll1 18:53 BP 107 / 68; Pulse 99; Resp 16; ll1 19:00 BP 113 / 84; Pulse 105; Resp 18 S; Pulse Ox 100% on R/A; Pain 0/10; ag7 16:43 Body Mass Index 26.22 (67.13 kg, 160.02 cm) jb4 ED Course: 16:34 Patient arrived in ED. as 16:34 Naima Pascual MD is Private Physician. as 16:40 Clovis Roche DO is Attending Physician. ms3 16:46 Triage completed. jb4 16:46 Arm band placed on right wrist. jb4 16:47 Neftaly Roberts, NICKI is Primary Nurse. ll1 16:47 Patient placed in an exam room, on a stretcher. ll1 18:53 Patient has correct armband on for positive identification. Bed in low position. Call ll1 light in reach. Side rails up X 1. Pulse ox on. NIBP on. 18:55 CXR XRAY In Process Unspecified. EDMS 19:07 Attending Physician role handed off by Clovis Roche DO 7 19:07 Roscoe Salmeron MD is Attending Physician. 7 19:22 Primary Nurse role handed off by Neftaly Roberts RN 2 19:22 Elvia Cuevas RN is Primary Nurse. ag7 21:01 Kezia Merchant MD is Referral Physician. 7 21:18 No provider procedures requiring assistance completed. IV discontinued, intact, ag7 bleeding controlled, No redness/swelling at site. Pressure dressing applied, 20 gauge right AC. Administered Medications: 20:18 Not Given (Patient Refused): DepoProvera - medroxyPROGESTERone 300 mg IM once ag7 Medication: 16:48 VIS not applicable for this client. ll1 Outcome: 21:02 Discharge ordered by . 7 21:19 Discharged to home ambulatory. ag7 21:19 Condition: stable 21:19 Discharge instructions given to patient, family, Instructed on discharge instructions, follow up and referral plans. Demonstrated understanding of instructions, follow-up care. 21:25 Patient left the ED. ag7 Signatures: Dispatcher [employer] Destini Busby James, RN RN jb4 Melyssa Dacosta mw2 Neftaly Roberts RN RN ll1 Clovis Roche DO DO ms3 Roscoe Salmeron MD MD [facility] Elvia Cuevas RN RN 7 Corrections: (The following items were deleted from the chart) 16:50 16:43 BP 112 / 84; Pulse 107bpm; Resp 16bpm; Pulse Ox 100%; Temp 98.1F Temporal; jb4 jb4
[2022-01-16 21:30] VITALS: TEMP 98.1; O2SAT 100
[2022-01-16 21:34] VITALS: BP 113/84
== END 2022-01-16 21:25 | disposition home or self-care (01) ==
LOC: ER 16:31
DX: D64.9 Anemia, unspecified (principal); R06.02 Shortness of breath; Z98.890 Other specified postprocedural states
CPT/HCPCS: 36415; 71045; 80048; 81003; 85025; 85379; 86900; 86901; 99283; J1050

== ENCOUNTER 2022-08-07 01:26 | Emergency (ER) | payer BC ==
--- OUTSIDE RECORDS SUMMARY | 2022-08-07 01:29 | XMS REPORT | Continuity of Care Document ---
:1985 Author Organization [facility] t Address [address] [place] [address] Care Team Providers Name Role Phone SYSTEM, PROVIDER NOT IN Attending Clinician Unavailable THOMAS DOWELL Attending Clinician Unavailable Payers Payer Name Policy Type Policy Number Effective Date Expiration Date S ource Problems This patient has no known problems. Allergies, Adverse Reactions, Alerts This patient has no known allergies or adverse reactions. Social History Social Habit Start Date Stop Date Quantity Comments Source Sex Assigned At [birth year] [facility] 00:00:00 00:00:00 MD [facility] Medications This patient has no known medications. Procedures This patient has no known procedures. Encounters Start End Encounter Admission Attending Care Care Encounter Source Date/Time Date/Time Type Type Clinicians Facility Department ID 2022-06-12 Outpatient SYSTEM, [facility] [id number] 08:24:10 PROVIDER Uday roque 2022-06-08 2022-06-08 Travel [id number] [facility] 00:00:00 00:00:00 [id number] ity of [id number] Roni xas [id number] [id number] [facility] 2022-01-15 2022-01-15 Emergency THOMAS DOWELL [facility] [id number] 00:00:00 00:00:[address] Results This patient has no known results.
--- OUTSIDE RECORDS SUMMARY | 2022-08-07 01:29 | XMS REPORT | Clinical Summary ---
:1985 Author Organization [facility] Address [address] [place] [address] Care Team Providers Name Role Phone Marco Pascual MD Unavailable Kezia Merchant MD Unavailable Allergies Not on File Medications Not on file Active Problems Not on file Encounters Date Type Specialty Care Team Description 06/08/2022 Travel after 08/07/2021 Social History Tobacco Use Types Packs/Day Years Used Date Smoking Tobacco: Never Assessed Sex Assigned at Date Recorded Not on file Job Start Date Occupation Industry Not on file Not on file Not on file Last Filed Vital Signs Not on file Plan of Treatment Not on file Results Not on fileafter 08/07/2021 Insurance Payer Benefit Plan / Subscriber ID Effective Dates Phone Addre ss Type Group [facility]UE [facility] [place] P[place] POS [id number] 2020-Present [address] [place] [address] [phone] (Work) Melissa Guzman Personal/Family Self 1985 [address] (Home) [place], [place] [address] Care Teams [employer] 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
[2022-08-07 02:45] LABS: Hematocrit 27.5 % (36.0-45.0); Lymphocytes % 17.9 % (15.3-44.8); MPV 8.7 fL (7.6-11.3); RBC Red Blood Cell Count 3.48 M/uL (3.86-4.86)
[2022-08-07 03:02] LABS: Potassium 3.9 mmol/L (3.5-5.1)
--- NOTE | 2022-08-07 03:08 | EDPHYS ---
Physician Documentation [facility] Name: Melissa Guzman Age: 37 yrs Sex: Female : 1985 Arrival Date: 08/07/2022 Time: 01:31 Bed 18 Private MD: ED Physician Félix Godinez HPI: 08/07 02:12 This 37 yrs old Black Female presents to ER via Ambulatory with complaints of Anemia. rn 02:12 Pt reports hx of anemia, gets iron infusions, due for one tomorrow. Came in today rn because of fatigue and wants her blood counts checked. No fever. No abd pain. No cough/sob. No syncope. Reports myomectomy for fibroids but didn't help, still has vaginal bleeding. . Pt states doesn't feel as bad as she did when her hemoglobin was in 7's. Has not required a blood transfusion. . Onset: The symptoms/episode began/occurred at an unknown time. Severity of symptoms: At their worst the symptoms were mild in the emergency department the symptoms are unchanged. The patient has experienced similar episodes in the past. The patient has not recently seen a physician. Historical: - Allergies: 01:36 No Known Allergies; jb4 - Home Meds: 01:36 accufer [Active]; jb4 - PMHx: 01:36 Endometriosis of vagina; Anemia; jb4 - PSHx: 01:36 fibroid removal; jb4 - Immunization history:: Adult Immunizations up to date. - Social history:: Smoking status: Patient denies any tobacco usage or history of. Patient uses alcohol, occasionally. - Family history:: not pertinent. - Hospitalizations: : No recent hospitalization is reported. ROS: 02:12 Constitutional: Negative for fever, chills, and weight loss, Eyes: Negative for injury, rn pain, redness, and discharge, Cardiovascular: Negative for chest pain, palpitations, and edema, Respiratory: Negative for shortness of breath, cough, wheezing, and pleuritic chest pain, Abdomen/GI: Negative for abdominal pain, nausea, vomiting, diarrhea, and constipation, Back: Negative for injury and pain, : Negative for injury, discharge, and swelling, MS/Extremity: Negative for injury and deformity, Skin: Negative for injury, rash, and discoloration, Neuro: Negative for headache, numbness, tingling, and seizure. Exam: 02:12 Constitutional: This is a well developed, well nourished patient who is awake, alert, rn and in no acute distress. Head/Face: Normocephalic, atraumatic. Cardiovascular: Regular rate and rhythm. No pulse deficits. Respiratory: No increased work of breathing, no retractions or nasal flaring. Abdomen/GI: Soft, non-tender Skin: Warm, dry MS/ Extremity: Pulses equal, no cyanosis. Neuro: Awake and alert, GCS 15 Vital Signs: 01:36 BP 148 / 95 Sitting; Pulse 84; Resp 16 S; Temp 98.3(O); Pulse Ox 100% on R/A; Weight jb4 68.04 kg (R); Height 5 ft. 3 in. (160.02 cm) (R); Pain 3/10; 03:00 BP 116 / 77; Pulse 72; Resp 16; Pulse Ox 100% on R/A; jb4 01:36 Body Mass Index 26.57 (68.04 kg, 160.02 cm) jb4 MDM: 01:34 Patient medically screened. rn 03:07 Differential Diagnosis anemia, dehydration. Data reviewed: vital signs, nurses notes, rn perioperative test result(s), and as a result, I will discharge patient. Counseling: I had a detailed discussion with the patient and/or guardian regarding: the historical points, exam findings, and any diagnostic results supporting the discharge/admit diagnosis, lab results, the need for outpatient follow up, to return to the emergency department if symptoms worsen or persist or if there are any questions or concerns that arise at home. Special discussion: I discussed with the patient/guardian in detail that at this point there is no indication for admission to the hospital. It is understood, however, that if the symptoms persist or worsen the patient needs to return immediately for re-evaluation. 08/07 01:44 Order name: CBC with Diff; Complete Time: 03: rn 08/07 01:44 Order name: Basic Metabolic Panel; Complete Time: 03: rn 08/07 01:44 Order name: IV Start; Complete Time: 02:29 rn Administered Medications: No medications were administered Disposition Summary: 08/07/22 03:08 Discharge Ordered Location: Home rn Problem: an ongoing problem rn Symptoms: are unchanged rn Condition: Stable rn Diagnosis - Anemia, unspecified rn - Dehydration rn Followup: rn - With: Private Physician - When: As needed - Reason: Recheck today's complaints, Re-evaluation by your physician Discharge Instructions: - Discharge Summary Sheet rn - Anemia rn - Dehydration, Adult rn Forms: - Medication Reconciliation Form rn - Thank You Letter rn - Antibiotic rn delivery - Prescription Opioid Use rn Signatures: Dispatcher [employer] EDFélix Veloz MD MD rn Bryson, James, RN RN jb4 Corrections: (The following items were deleted from the chart) 01:48 01:36 Allergies: Aspirin; jb4 jb4
--- NOTE | 2022-08-07 03:08 | ER ---
Nurse's Notes [facility] Name: Melissa Guzman Age: 37 yrs Sex: Female : 1985 Arrival Date: 08/07/2022 Time: 01:31 Bed 18 Private MD: Diagnosis: Anemia, unspecified;Dehydration Presentation: 08/07 01:36 Chief complaint: Patient states: I have anemia and am currently receiving iron jb4 transfusion, tonight I was feeling more tired than usual and wanted to get my labs checked. I am having some SOB but it is not as bad as last time. 01:36 Coronavirus screen: At this time, the client does not indicate any symptoms associated jb4 with coronavirus-19. Ebola Screen: No symptoms or risks identified at this time. Initial Sepsis Screen: Does the patient meet any 2 criteria? No. Patient's initial sepsis screen is negative. Does the patient have a suspected source of infection? No. Patient's initial sepsis screen is negative. Risk Assessment: Do you want to hurt yourself or someone else? Patient reports no desire to harm self or others. Onset of symptoms was August 07, 2022. Transition of care: patient was not received from another setting of care. 01:36 Method Of Arrival: Ambulatory jb4 01:36 Acuity: SHANTEL 3 jb4 Historical: - Allergies: 01:36 No Known Allergies; jb4 - Home Meds: 01:36 accufer [Active]; jb4 - PMHx: 01:36 Endometriosis of vagina; Anemia; jb4 - PSHx: 01:36 fibroid removal; jb4 - Immunization history:: Adult Immunizations up to date. - Social history:: Smoking status: Patient denies any tobacco usage or history of. Patient uses alcohol, occasionally. - Family history:: not pertinent. - Hospitalizations: : No recent hospitalization is reported. Screenin:36 [facility] ED Fall Risk Assessment (Adult) History of falling in the last 3 months, jb4 including since admission No falls in past 3 months (0 pts) Confusion or Disorientation No (0 pts) Intoxicated or Sedated No (0 pts) Impaired Gait No (0 pts) Mobility Assist Device Used No (0 pt) Altered Elimination No (0 pt) Score/Fall Risk Level 0 - 2 = Low Risk Oriented to surroundings, Maintained a safe environment. Abuse screen: Denies threats or abuse. Nutritional screening: No deficits noted. Tuberculosis screening: No symptoms or risk factors identified. 01:36 Fall Risk No fall in past 12 months (0 pts). No secondary diagnosis (0 pts). No IV (0 jb4 pts). Ambulatory Aid- None/Bed Rest/Nurse Assist (0 pts). Gait- Normal/Bed Rest/Wheelchair (0 pts) Mental Status- Oriented to own ability (0 pts). Total Vivar Fall Scale indicates No Risk (0-24 pts). Assessment: 01:36 General: Appears in no apparent distress. comfortable, Behavior is calm, cooperative, jb4 appropriate for age. Pain: Complains of pain in suprapubic area Pain does not radiate. Pain currently is 3 out of 10 on a pain scale. Neuro: Level of Consciousness is awake, alert, obeys commands, Oriented to person, place, time, situation. Cardiovascular: Patient's skin is warm and dry. Respiratory: Airway is patent Respiratory effort is even, unlabored, Respiratory pattern is regular, symmetrical. GI: Abdomen is flat, non-distended, Reports lower abdominal pain. : No signs and/or symptoms were reported regarding the genitourinary system. EENT: No signs and/or symptoms were reported regarding the EENT system. Derm: Skin is intact, Skin is dry, Skin is pale, Skin temperature is warm. Musculoskeletal: Circulation, motion, and sensation intact. Range of motion: intact in all extremities. 03:17 Reassessment: Patient appears in no apparent distress at this time. Patient and/or jb4 family updated on plan of care and expected duration. Pain level reassessed. Patient is alert, oriented x 3, equal unlabored respirations, skin warm/dry/pink. Vital Signs: 01:36 BP 148 / 95 Sitting; Pulse 84; Resp 16 S; Temp 98.3(O); Pulse Ox 100% on R/A; Weight jb4 68.04 kg (R); Height 5 ft. 3 in. (160.02 cm) (R); Pain 3/10; 03:00 BP 116 / 77; Pulse 72; Resp 16; Pulse Ox 100% on R/A; jb4 01:36 Body Mass Index 26.57 (68.04 kg, 160.02 cm) jb4 ED Course: 01:31 Patient arrived in ED. 2 01:34 Félix Godinez MD is Attending Physician. rn 01:36 Arm band placed on right wrist. jb4 01:36 Patient has correct armband on for positive identification. Placed in gown. Bed in low jb4 position. Call light in reach. Side rails up X 1. Client placed on continuous cardiac and pulse oximetry monitoring. NIBP monitoring applied. 01:45 Quique Lomeli, RN is Primary Nurse. jb4 01:47 Triage completed. jb4 02:26 Inserted saline lock: 20 gauge in right antecubital area, using aseptic technique. oe Blood collected. 03:18 No provider procedures requiring assistance completed. IV discontinued, intact, jb4 bleeding controlled, No redness/swelling at site. Pressure dressing applied. Administered Medications: No medications were administered Medication: 03:00 VIS not applicable for this client. jb4 Outcome: 03:08 Discharge ordered by . rn 03:18 Discharged to home ambulatory, with friend. jb4 03:18 Condition: stable 03:18 Discharge instructions given to patient, Instructed on discharge instructions, follow up and referral plans. Demonstrated understanding of instructions, follow-up care. 03:18 Patient left the ED. jb4 Signatures: Félix Godinez MD MD rn Bryson, James, RN RN jb4 Curtis Dasilva Jessica ja2 Corrections: (The following items were deleted from the chart) 01:48 01:36 Allergies: Aspirin; jb4 jb4
[2022-08-07 03:28] VITALS: TEMP 98.3; O2SAT 100
[2022-08-07 03:34] VITALS: BP 116/77
== END 2022-08-07 03:18 | disposition home or self-care (01) ==
LOC: ER 01:26
DX: E86.0 Dehydration (principal); D64.9 Anemia, unspecified
CPT/HCPCS: 36415; 80048; 85025; 99283

== ENCOUNTER 2022-09-28 07:02 | Day surgery (SDC) | payer BC ==
[2022-09-28 07:46] VITALS: O2SAT 100
[2022-09-28 07:48] VITALS: BMI 26.5
[2022-09-28] MEDS ORDERED: NA CHLORIDE 0.9% 250 ML ONE (10:20)
[2022-09-28 13:18] VITALS: BP 112/72; TEMP 98.5
[2022-09-28 14:47] LABS: Hematocrit 25.2 % (36.0-45.0)
== END 2022-09-28 14:29 | disposition home or self-care (01) ==
LOC: DS 07:02
PROVIDERS: ATTEND Obstetrics & Gynecology
DX: D50.0 Iron deficiency anemia secondary to blood loss (chronic) (principal)
CPT/HCPCS: 36415; 86900; 86850; 86901; 85018; 85014; 36430; P9016; J7050

== ENCOUNTER 2022-09-30 04:40 | Emergency (ER) | payer BC ==
--- OUTSIDE RECORDS SUMMARY | 2022-09-30 04:42 | XMS REPORT | Clinical Summary ---
:1985 Author Organization [facility] Address [address] [place] [address] Care Team Providers Name Role Phone Marco Pascual MD Unavailable Kezia Merchant MD Unavailable Allergies Not on File Medications Not on file Active Problems Not on file Encounters Date Type Specialty Care Team Description 06/08/2022 Travel after 09/30/2021 Social History Tobacco Use Types Packs/Day Years Used Date Smoking Tobacco: Never Assessed Sex Assigned at Date Recorded Not on file Job Start Date Occupation Industry Not on file Not on file Not on file Last Filed Vital Signs Not on file Plan of Treatment Not on file Results Not on fileafter 09/30/2021 Insurance Payer Benefit Plan / Subscriber ID Effective Dates Phone Addre ss Type Group [facility]UE [facility] [place] POS [id number] 2020-Present [address] [place] [address] [phone] (Work) Melissa Guzman Personal/Family Self 1985 [address] (Home) [place], [place] [address] Care Teams 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
--- OUTSIDE RECORDS SUMMARY | 2022-09-30 04:42 | XMS REPORT | Continuity of Care Document ---
:1985 Author Organization [facility] t Address [address] [place] [address] Care Team Providers Name Role Phone Asked, No Pcp Primary Care Physician Unavailable SYSTEM, PROVIDER NOT IN Attending Clinician Unavailable Chi SCHWARZ, Verenice Beaulieu Attending Clinician Payers Payer Name Policy Type Policy Number Effective Date Expiration Date S ource Problems This patient has no known problems. Allergies, Adverse Reactions, Alerts This patient has no known allergies or adverse reactions. Social History Social Habit Start Date Stop Date Quantity Comments Source Sex Assigned At [birth year] [facility] 00:00:00 00:00:00 MD Resendiz [facility] Smoking Status Start Date Stop Date Source Tobacco smoking consumption unknown [facility] Medications This patient has no known medications. Vital Signs Vital Name Observation Time Observation Value Comments Source Body height 2022-01-15 22:37:00 160 cm [facility] Respiratory rate 2022-01-15 22:36:27 16 /min [facility] Oxygen saturation in 2022-01-15 22:36:27 100 /min [facility] Arterial blood by Pulse oximetry Systolic blood 2022-01-15 22:36:27 121 mm[Hg] [facility] pressure Diastolic blood 2022-01-15 22:36:27 82 mm[Hg] [facility] pressure Heart rate 2022-01-15 22:36:27 103 /min [facility] Body temperature 2022-01-15 22:36:27 36.83 [facility] Procedures Procedure Date / Time Performed Performing Clinician [facility] e ED REFERRAL TO [place] 2022-01-15 22:52:38 [facility] [employer] (PCP) Encounters Start End Encounter Admission Attending Care Care Encounter Source Date/Time Date/Time Type Type Clinicians Facility Department ID 2022-06-12 Outpatient SYSTEM, [facility] [id number] 08:24:10 PROVIDER [facility] 2022-06-08 2022-06-08 Travel [id number] [facility] 00:00:00 00:00:00 [id number] ity of [id number] [id number] [place] .[id number] 084.8 .8 [facility] 2022-06-08 2022-06-08 Travel 1.2.840.1 [id number] [facility] 00:00:00 00:00:00 [id number] ity of 3.412.2.7 [id number] [place] .[id number] 084.8 MD Mcduffie8 [facility] 2022-01-15 2022-01-15 Emergency Verenice Mireles [id number] [facility] 17:39:00 19:09:00 Jacques Beaulieu [id number] 462 s t 3.430.2.7 Hospit a .[id number] racquel .8 2022-01-15 2022-01-15 Emergency CHIJAZMYNEUN [facility] [id number] [place] 00:00:00 00:00:[address] Results This patient has no known results.
[2022-09-30] MEDS ORDERED: MEDROXYPROGEST ACET 150 MG/ML IM ONE (05:08)
--- NOTE | 2022-09-30 05:48 | EDPHYS ---
Physician Documentation [facility] Name: Melissa Guzman Age: 37 yrs Sex: Female : 1985 Arrival Date: 09/30/2022 Time: 04:44 Bed 5 Private MD: ED Physician Félix Godinez HPI: 09/30 05:22 This 37 yrs old Black Female presents to ER via Ambulatory with complaints of Anemia, rn needs depo shot. 05:22 Pt reports recent blood transfusion for anemia, seen by Dr. Merchant and recommended rn depo shot, patient declined at the time to further research, reports still bleeding and now wants to get depo shot. Reports repeat hemoglobin went up to almost 9 from 7 on Sunday. Denies chest pain/sob. . Onset: The symptoms/episode began/occurred at an unknown time. Severity of symptoms: At their worst the symptoms were mild in the emergency department the symptoms are unchanged. The patient has experienced similar episodes in the past. The patient has been recently seen by a physician:. 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 - Social history:: Smoking status: Patient denies any tobacco usage or history of. - Family history:: not pertinent. - Hospitalizations: : No recent hospitalization is reported. ROS: 05:22 Constitutional: Negative for fever, chills, and weight loss, Eyes: Negative for injury, rn pain, redness, and discharge, Cardiovascular: Negative for chest pain, palpitations, and edema, Respiratory: Negative for shortness of breath, cough, wheezing, and pleuritic chest pain, Abdomen/GI: Negative for abdominal pain, nausea, vomiting, diarrhea, and constipation, : + vaginal bleeding MS/Extremity: Negative for injury and deformity, Neuro: Negative for headache, weakness, numbness, tingling, and seizure. Exam: 05:22 Constitutional: This is a well developed, well nourished patient who is awake, alert, rn and in no acute distress. Cardiovascular: Regular rate and rhythm. No pulse deficits. Respiratory: No increased work of breathing, no retractions or nasal flaring. Skin: Warm, dry Neuro: Awake and alert, GCS 15, oriented to person, place, time, and situation. Cranial nerves II-XII grossly intact. Motor strength 5/5 in all extremities. Sensory grossly intact. Cerebellar exam normal. Normal gait. Vital Signs: 05:17 BP 121 / 83; Pulse 72; Resp 15; Temp 98.1; Pulse Ox 100% on R/A; Weight 68.04 kg; vc1 Height 5 ft. 3 in. (160.02 cm); Pain 0/10; 05:17 Body Mass Index 26.57 (68.04 kg, 160.02 cm) vc1 MDM: 04:46 Patient medically screened. rn 05:46 Differential Diagnosis vaginal bleeding. Data reviewed: vital signs, nurses notes, and rn as a result, I will discharge patient. Care significantly affected by the following chronic conditions: anemia. Counseling: I had a detailed discussion with the patient and/or guardian regarding: the historical points, exam findings, and any diagnostic results supporting the discharge/admit diagnosis, the need for outpatient follow up, to return to the emergency department if symptoms worsen or persist or if there are any questions or concerns that arise at home. Special discussion: I discussed with the patient/guardian in detail that at this point there is no indication for admission to the hospital. It is understood, however, that if the symptoms persist or worsen the patient needs to return immediately for re-evaluation. Based on the history and exam findings, there is no indication for further emergent testing or inpatient evaluation. I discussed with the patient/guardian the need to see the OB Gyne specialist for further evaluation of the symptoms. Administered Medications: 05:19 Drug: DepoProvera - medroxyPROGESTERone 150 mg Route: IM; Site: right ventrogluteal; aa9 Disposition Summary: 09/30/22 05:48 Discharge Ordered Location: Home rn Problem: an ongoing problem rn Symptoms: are unchanged rn Condition: Stable rn Diagnosis - Anemia, unspecified rn - Abnormal uterine and vaginal bleeding, unspecified rn Followup: rn - With: Private Physician - When: As needed - Reason: Recheck today's complaints, Re-evaluation by your physician Discharge Instructions: - Discharge Summary Sheet rn - Abnormal Uterine Bleeding rn - Anemia rn Forms: - Medication Reconciliation Form rn - Thank You Letter rn - Antibiotic pattern hand - Prescription Opioid Use rn Signatures: Félix Godinez MD MD rn Calcote, Vanessa, RN RN vc1 Chiara Riggs RN RN aa9
--- NOTE | 2022-09-30 05:48 | ER ---
Nurse's Notes [facility] Name: Melissa Guzman Age: 37 yrs Sex: Female : 1985 Arrival Date: 09/30/2022 Time: 04:44 Bed 5 Private MD: Diagnosis: Anemia, unspecified;Abnormal uterine and vaginal bleeding, unspecified Presentation: 09/30 05:17 Chief complaint: Patient states: "I have been bleeding for 20 days. I just got a blood vc1 transfusion on .". Coronavirus screen: Vaccine status: Patient reports receiving the 2nd dose of the covid vaccine. [employer] Client denies travel out of the [place] in the last 14 days. At this time, the client does not indicate any symptoms associated with coronavirus-19. Ebola Screen: Patient negative for fever greater than or equal to 101.5 degrees Fahrenheit, and additional compatible Ebola Virus Disease symptoms Patient denies exposure to infectious person. Patient denies travel to an Ebola-affected area in the 21 days before illness onset. No symptoms or risks identified at this time. Initial Sepsis Screen: Does the patient meet any 2 criteria? No. Patient's initial sepsis screen is negative. Does the patient have a suspected source of infection? No. Patient's initial sepsis screen is negative. Risk Assessment: Do you want to hurt yourself or someone else? Patient reports no desire to harm self or others. Onset of symptoms is unknown. 05:17 Method Of Arrival: Ambulatory vc1 05:17 Acuity: SHANTEL 4 vc1 Triage Assessment: 05:21 General: Appears in no apparent distress. uncomfortable, Behavior is calm, cooperative, vc1 appropriate for age. Pain: Denies pain. EENT: No deficits noted. Neuro: No deficits noted. Cardiovascular: No deficits noted. Respiratory: Airway is patent Respiratory effort is even, unlabored, Respiratory pattern is regular, symmetrical. GI: No deficits noted. No signs and/or symptoms were reported involving the gastrointestinal system. : Reports vaginal bleeding that is. Derm: No deficits noted. No signs and/or symptoms reported regarding the dermatologic system. Musculoskeletal: No deficits noted. No signs and/or symptoms reported regarding the musculoskeletal system. 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 - Social history:: Smoking status: Patient denies any tobacco usage or history of. - Family history:: not pertinent. - Hospitalizations: : No recent hospitalization is reported. Screenin:22 Abuse screen: Denies threats or abuse. Nutritional screening: No deficits noted. vc1 Tuberculosis screenin:57 [facility] ED Fall Risk Assessment (Adult) History of falling in the last 3 months, aa9 including since admission No falls in past 3 months (0 pts) Confusion or Disorientation No (0 pts) Intoxicated or Sedated No (0 pts) Impaired Gait No (0 pts) Mobility Assist Device Used No (0 pt) Altered Elimination No (0 pt) Score/Fall Risk Level 0 - 2 = Low Risk Oriented to surroundings, Maintained a safe environment. Vital Signs: 05:17 BP 121 / 83; Pulse 72; Resp 15; Temp 98.1; Pulse Ox 100% on R/A; Weight 68.04 kg; vc1 Height 5 ft. 3 in. (160.02 cm); Pain 0/10; 05:17 Body Mass Index 26.57 (68.04 kg, 160.02 cm) vc1 ED Course: 04:44 Patient arrived in ED. ja2 04:46 Félix Godinez MD is Attending Physician. rn 05:00 Chiara Riggs RN is Primary Nurse. aa9 05:20 Triage completed. vc1 05:22 Bed in low position. Pulse ox on. NIBP on. vc1 05:57 Arm band placed on. aa9 05:57 Patient did not have IV access during this emergency room visit. aa9 05:57 No provider procedures requiring assistance completed. aa9 Administered Medications: 05:19 Drug: DepoProvera - medroxyPROGESTERone 150 mg Route: IM; Site: right ventrogluteal; aa9 Medication: 05:22 VIS not applicable for this client. vc1 Outcome: 05:48 Discharge ordered by . rn 05:57 Discharged to home ambulatory, with family. aa9 05:57 Condition: stable 05:57 Discharge instructions given to patient, Instructed on discharge instructions, follow up and referral plans. Demonstrated understanding of instructions, follow-up care. 05:58 Patient left the ED. aa9 Signatures: Félix Godinez MD MD rn Alexander, Jessica ja2 Calcote, Vanessa RN RN vc1 Chiara Riggs RN RN aa9
[2022-09-30 06:20] VITALS: BP 121/83; TEMP 98.1; O2SAT 100
== END 2022-09-30 05:58 | disposition home or self-care (01) ==
LOC: ER 04:40
DX: D64.9 Anemia, unspecified (principal)
CPT/HCPCS: 96372; 99283; J1050

== ENCOUNTER 2022-10-11 09:23 | Day surgery (SDC) | payer BC ==
[2022-10-11 09:56] VITALS: BP 123/81; TEMP 97.9; O2SAT 100; BMI 26.5
[2022-10-11] MEDS ORDERED: SOD FERRIC GLUC COMPLX/SUCROSE 125 MG in NA CHLORIDE 0.9% 100 ML IV ONE (10:00)
== END 2022-10-11 10:55 | disposition home or self-care (01) ==
LOC: DS 09:23
PROVIDERS: ATTEND Obstetrics & Gynecology
DX: D50.0 Iron deficiency anemia secondary to blood loss (chronic) (principal)
CPT/HCPCS: 96365; 96366; J2916